=== PATIENT | female | born 1980 | race Caucasian/White ===

== ENCOUNTER 2022-07-10 12:55 | Outpatient (CLI) | payer OTHER | END 2022-07-10 13:24 | disposition home or self-care (01) | LOC: MAMO-SONO 12:55 | DX: N60.01 Solitary cyst of right breast (principal); N60.02 Solitary cyst of left breast ==

== ENCOUNTER 2025-02-16 13:36 | Outpatient (CLI) | payer OTHER | END 2025-02-16 13:46 | disposition home or self-care (01) | LOC: MAMO-SONO 13:36 | PROVIDERS: ATTEND Obstetrics & Gynecology Gynecology | DX: N64.4 Mastodynia (principal); Z12.31 Encounter for screening mammogram for malignant neoplasm of breast ==